=== PATIENT | female | born 2000 ===

== ENCOUNTER 2022-04-18 14:51 | Emergency (ER) | payer SELFPAY ==
[2022-04-18 14:59] VITALS: BP 149/94
== END 2022-04-18 19:55 | disposition left against medical advice (07) ==
LOC: ED 14:51
DX: S61.519A Laceration without foreign body of unspecified wrist, initial encounter (principal); Z53.21 Procedure and treatment not carried out due to patient leaving prior to being seen by health care provider; W45.8XXA Other foreign body or object entering through skin, initial encounter; Y93.89 Activity, other specified; Y92.89 Other specified places as the place of occurrence of the external cause; Y99.8 Other external cause status